=== PATIENT | male | born 1975 | race Caucasian/White ===

== ENCOUNTER 2017-04-14 19:41 | Observation (INO) | payer OTHER, BC ==
[2017-04-14] MEDS ORDERED: Sodium Chloride 0.9% 2.5 ML Syringe FLUSH PRN (19:56)
[2017-04-14] MEDS ORDERED: Aspirin 81 MG Tab.Chew PO ONE (19:56)
[2017-04-14] MEDS ORDERED: Sodium Chloride 0.9% 10 ML Syringe FLUSH PRN (19:56)
--- NOTE | 2017-04-14 20:01 | EDM.PDOC ---
ED HPI GENERAL MEDICAL PROBLEM - General Chief Complaint: Chest Pain Stated Complaint: CHEST PAIN Time Seen by Provider: 04/14/17 19:44 - History of Present Illness INITIAL COMMENTS - FREE TEXT/NARRATIVE: HISTORY AND PHYSICAL: History of present illness: The patient is a 42-year-old male with a history of PTSD who follows with a provider at the [facility] in [place] where he lives and presents with complaints of on and off left-sided chest pain has been ongoing for the last 1 week. The patient had a similar episode on November 01 of last year and presented to our ER and had an ER workup which was negative and he was advised to follow-up with his provider. He did that right his provider did not perform a stress test but the patient states he did have a cholesterol and lipid panel performed within the last 6 months. The patient states that he was managed more from a psychosocial point of view and it was felt by his provider that his chest discomfort was more related to his PTSD. The patient states that when he is working he tries to eat a good diet but he does like spicy foods but has no GI history, peptic ulcer disease or gallbladder problems. The patient does not smoke or do any drugs. The patient has no known family history but he states he does not know much about his father. The patient states that the chest pain is just to the left of his sternum and is sharp in character and does not radiate to his arm or jaw but does shoot through to his back. It waxes and wanes in intensity and he states he never wakes from sleep with this discomfort. He says that when he is at work or driving in the car that seems to trigger the discomfort. Patient has had no nausea vomiting or diaphoresis and no palpitations. He did have one episode of diarrhea today which was not black or bloody. Patient has a significant history of a recent left breast mass that was removed and determined to be benign. He has no discomfort at this area. Patient denies any shortness of breath or upper respiratory symptoms and has no leg pain or swelling. Patient does a lot of strenuous activity at work and does not specifically have chest pain with those activities. Patient currently rates his pain as a 7/10. Patient has not taken anything for this discomfort in the last 1 week. The patient states that the reason why he delayed coming in as he is unsure if this is more stress related and PTSD related or if it is cardiac and he thought that because it had been ongoing for a week he should be checked out Review of systems: As per history of present illness and below otherwise all systems reviewed and negative. Past medical history: As per history of present illness and as reviewed below otherwise noncontributory. Surgical history: As per history of present illness and as reviewed below otherwise noncontributory. Social history: No reported history of drug or alcohol abuse. Family history: As per history of present illness and as reviewed below otherwise noncontributory. Physical exam: Gen.: Well-developed well-nourished man who is nontoxic and vital signs were noted by me. HEENT: Atraumatic, normocephalic, pupils reactive, negative for conjunctival pallor or scleral icterus, mucous membranes moist, throat clear, neck supple, nontender, trachea midline. Lungs: Clear to auscultation, breath sounds equal bilaterally, chest nontender. No defects deformities crepitus. Heart: S1S2, regular, negative for clicks, rubs, or JVD. Abdomen: Soft, nondistended, nontender. Negative for masses or hepatosplenomegaly. Negative for costovertebral tenderness. Pelvis: Stable nontender. Genitourinary: Deferred. Rectal: Deferred. Extremities: Atraumatic, negative for cords or calf pain. Neurovascular unremarkable. No pedal edema or leg asymmetry Neuro: Awake, alert, oriented. Cranial nerves II through XII unremarkable. Cerebellum unremarkable. Motor and sensory unremarkable throughout. Exam nonfocal. Diagnostics: EKG chest x-ray CBC CMP troponin INR Therapeutics: Aspirin nitroglycerin IV O2 monitor Patient is chest pain-free after 2 sub-lingual nitroglycerin. Nitropaste will be applied I discussed all testing results with the patient and he is agreeable for observation admission. Case was also discussed with Dr. Connors at 2148 accepts the patient for admission Impression: Chest pain rule out ACS Definitive disposition and diagnosis as appropriate pending reevaluation and review of above. Anterior Chest Pain Score (Numeric/FACES): 0 - Related Data Allergies Allergy/AdvReac Type Severity Reaction Status Date / Time No Known Allergies Allergy Verified 04/14/17 19:44 Home Meds: Home Meds . [No Known Home Meds] 11/01/16 [History] Past Medical History HEENT History: Reports: Impaired Vision Other HEENT History: glasses Psychiatric History: Reports: Anxiety, PTSD - Infectious Disease History Infectious Disease History: Reports: Chicken Pox Social & Family History - Family History Family Medical History: Unobtainable - Tobacco Use Smoking Status *Q: Never Smoker Second Hand Smoke Exposure: No - Caffeine Use Caffeine Use: Reports: Soda - Recreational Drug Use Recreational Drug Use: No ED ROS GENERAL - Review of Systems Review Of Systems: ROS reveals no pertinent complaints other than HPI. ED EXAM, GENERAL - Physical Exam Exam: See Below (See dictation) Course - Vital Signs Last Recorded V/S: Last Vital Signs Temp 36.3 C 04/14/17 20:28 Pulse 51 L 04/14/17 20:28 Resp 17 04/14/17 20:28 BP 128/78 04/14/17 20:28 Pulse Ox 97 04/14/17 20:28 - Orders/Labs/Meds Orders: Active Orders 24 hr Category Date Time Status Patient Status [ADT] Stat ADT 04/14/17 21:45 Ordered Cardiac Monitoring [RC] . DIRECTED Care 04/14/17 19:56 Active EKG Documentation Completion [RC] STAT Care 04/14/17 19:56 Active Oxygen Therapy [RC] ASDIRECTED Care 04/14/17 19:56 Active Pulse Oximetry [RC] ASDIRECTED Care 04/14/17 19:56 Active Chest 1V Frontal [CR] Stat Exams 04/14/17 19:56 Taken Sodium Chloride 0.9% [Saline Flush] Med 04/14/17 19:56 Active 10 ml FLUSH ASDIRECTED PRN Sodium Chloride 0.9% [Saline Flush] Med 04/14/17 19:56 Active 2.5 ml FLUSH ASDIRECTED PRN Saline Lock Insert [OM.PC] Stat Oth 04/14/17 19:56 Ordered Medication Orders Sodium Chloride (Saline Flush) 10 ml FLUSH ASDIRECTED PRN PRN Reason: Keep Vein Open Last Admin: 04/14/17 20:05 Dose: 10 ml Sodium Chloride (Saline Flush) 2.5 ml FLUSH ASDIRECTED PRN PRN Reason: Keep Vein Open Last Admin: 04/14/17 20:04 Dose: 2.5 ml Labs: Laboratory Tests 04/14/17 04/14/17 04/14/17 Range/Units 19:49 19:49 19:49 WBC 10.55 (4.0-11.0) K/uL RBC 5.35 (4.50-5.90) M/uL Hgb 15.4 (13.0-17.0) g/dL Hct 42.4 (38.0-50.0) % MCV 79.3 L (80.0-98.0) fL MCH 28.8 (27.0-32.0) pg MCHC 36.3 (31.0-37.0) g/dL RDW Std Deviation 36.2 (28.0-62.0) fl RDW Coeff of Justine 13 (11.0-15.0) % Plt Count 346 (150-400) K/uL MPV 9.80 (7.40-12.00) fL Neut % (Auto) 61.3 (48.0-80.0) % Lymph % (Auto) 30.4 (16.0-40.0) % [place] % (Auto) 6.9 (0.0-15.0) % Eos % (Auto) 0.9 (0.0-7.0) % Baso % (Auto) 0.5 (0.0-1.5) % Neut # (Auto) 6.5 H (1.4-5.7) K/uL Lymph # (Auto) 3.2 H (0.6-2.4) K/uL [place] # (Auto) 0.7 (0.0-0.8) K/uL Eos # (Auto) 0.1 (0.0-0.7) K/uL Baso # (Auto) 0.1 (0.0-0.1) K/uL Nucleated RBC % 0.0 /100WBC Nucleated RBCs # 0 K/uL INR 1.01 (0.86-1.11) Sodium 138 (136-146) mmol/L Potassium 3.7 (3.5-5.1) mmol/L Chloride 106 (98-110) mmol/L Carbon Dioxide 21 (21-31) mmol/L BUN 14 (6.0-23.0) mg/dL Creatinine 0.9 (0.6-1.5) mg/dL Est Cr Clr Drug Dosing 117.36 mL/min Estimated GFR (MDRD) > 60.0 ml/min Glucose 85 (60-110) mg/dL Calcium 9.1 (8.8-10.8) mg/dL Total Bilirubin 0.5 (0.1-1.5) mg/dL AST 29 (5-40) IU/L ALT 41 (8-54) IU/L Alkaline Phosphatase 108 (40-150) Troponin I (0.0-0.29) NG/ML Total Protein 7.4 (6.0-8.0) g/dL Albumin 4.6 (3.5-5.0) g/dL Globulin 2.8 (2.0-3.5) g/dL Albumin/Globulin Ratio 1.6 (1.3-2.8) 04/14/17 Range/Units 19:49 WBC (4.0-11.0) K/uL RBC (4.50-5.90) M/uL Hgb (13.0-17.0) g/dL Hct (38.0-50.0) % MCV (80.0-98.0) fL MCH (27.0-32.0) pg MCHC (31.0-37.0) g/dL RDW Std Deviation (28.0-62.0) fl RDW Coeff of Justine (11.0-15.0) % Plt Count (150-400) K/uL MPV (7.40-12.00) fL Neut % (Auto) (48.0-80.0) % Lymph % (Auto) (16.0-40.0) % [place] % (Auto) (0.0-15.0) % Eos % (Auto) (0.0-7.0) % Baso % (Auto) (0.0-1.5) % Neut # (Auto) (1.4-5.7) K/uL Lymph # (Auto) (0.6-2.4) K/uL [place] # (Auto) (0.0-0.8) K/uL Eos # (Auto) (0.0-0.7) K/uL Baso # (Auto) (0.0-0.1) K/uL Nucleated RBC % /100WBC Nucleated RBCs # K/uL INR (0.86-1.11) Sodium (136-146) mmol/L Potassium (3.5-5.1) mmol/L Chloride (98-110) mmol/L Carbon Dioxide (21-31) mmol/L BUN (6.0-23.0) mg/dL Creatinine (0.6-1.5) mg/dL Est Cr Clr Drug Dosing mL/min Estimated GFR (MDRD) ml/min Glucose (60-110) mg/dL Calcium (8.8-10.8) mg/dL Total Bilirubin (0.1-1.5) mg/dL AST (5-40) IU/L ALT (8-54) IU/L Alkaline Phosphatase (40-150) Troponin I < 0.10 (0.0-0.29) NG/ML Total Protein (6.0-8.0) g/dL Albumin (3.5-5.0) g/dL Globulin (2.0-3.5) g/dL Albumin/Globulin Ratio (1.3-2.8) Meds: Medications Generic Name Dose Route Start Last Admin Trade Name Freq PRN Reason Stop Dose Admin Sodium Chloride 10 ml 04/14/17 19:56 04/14/17 20:05 Saline Flush FLUSH 10 ml ASDIRECTED PRN Administration Keep Vein Open Sodium Chloride 2.5 ml 04/14/17 19:56 04/14/17 20:04 Saline Flush FLUSH 2.5 ml ASDIRECTED PRN Administration Keep Vein Open Discontinued Medications Generic Name Dose Route Start Last Admin Trade Name Freq PRN Reason Stop Dose Admin Aspirin 324 mg 04/14/17 19:56 04/14/17 20:03 Aspirin PO 04/14/17 19:57 324 mg ONETIME ONE Administration Nitroglycerin 0.4 mg 04/14/17 20:00 04/14/17 20:17 Nitrostat SL 04/14/17 20:11 Not Given Q5M NAV Nitroglycerin 0.5 gm 04/14/17 21:45 Nitro-Bid 2% TOP 04/14/17 21:46 ONETIME ONE Departure - Departure Time of Disposition: 21:50 Disposition: Refer to Observation Condition: Good Clinical Impression: Acute coronary syndrome - Discharge Information Forms: ED Department Discharge - My Orders Last 24 Hours: My Active Orders 04/14/17 19:56 Cardiac Monitoring [RC] . DIRECTED EKG Documentation Completion [RC] STAT Oxygen Therapy [RC] ASDIRECTED Pulse Oximetry [RC] ASDIRECTED Chest 1V Frontal [CR] Stat Sodium Chloride 0.9% [Saline Flush] 10 ml FLUSH ASDIRECTED PRN Sodium Chloride 0.9% [Saline Flush] 2.5 ml FLUSH ASDIRECTED PRN Saline Lock Insert [OM.PC] Stat 04/14/17 21:45 Patient Status [ADT] Stat - Assessment/Plan Last 24 Hours: My Active Orders 04/14/17 19:56 Cardiac Monitoring [RC] . DIRECTED EKG Documentation Completion [RC] STAT Oxygen Therapy [RC] ASDIRECTED Pulse Oximetry [RC] ASDIRECTED Chest 1V Frontal [CR] Stat Sodium Chloride 0.9% [Saline Flush] 10 ml FLUSH ASDIRECTED PRN Sodium Chloride 0.9% [Saline Flush] 2.5 ml FLUSH ASDIRECTED PRN Saline Lock Insert [OM.PC] Stat 04/14/17 21:45 Patient Status [ADT] Stat
[2017-04-14] MEDS: Nitroglycerin 0.4 MG Tab.SL SL SCH ×3 (20:06→20:17)
[2017-04-14 20:29] LABS: CHLORIDE,CL 106 mmol/L (98-110); SODIUM,NA 138 mmol/L (136-146)
[2017-04-14] MEDS ORDERED: Nitroglycerin 2% Oint 1 GM UD Packet TOP ONE (21:45)
--- NOTE | 2017-04-15 09:24 | PCM.HP ---
H&P History of Present Illness - General Admit Problem/Dx: Admission Diagnosis/Problem Admission Diagnosis/Problem Acute coronary syndrome - History of Present Illness Initial Comments - Free Text/Narative: 42 yo male with pmh of PTSD who presents to the ED with chest pain. He reports having chest pain for years. His chest pain has been attributed to his PTSD in the past. He reports chest pain as a burning shocking pain in the center of his chest. He also has tingling of his extremities. The chest pain usually occurs with rest or while he is a car but not during exercise. He reports he can feel his heart beat during these episodes that can last for an hour or so. He reports anxiety and feeling like he might have to fight someone. These epsiodes have been increasing in frequency this past week and usually in the evening. Anterior Chest Pain Score (Numeric/FACES): 0 - Related Data Allergies/Adverse Reactions: Allergies Allergy/AdvReac Type Severity Reaction Status Date / Time No Known Allergies Allergy Verified 04/14/17 19:44 Home Medications: Home Meds Escitalopram Oxalate 20 mg PO BEDTIME 04/14/17 [History] Gabapentin [Neurontin] 200 mg PO BEDTIME 04/14/17 [History] Past Medical History HEENT History: Reports: Impaired Vision Other HEENT History: glasses Cardiovascular History: Reports: None Respiratory History: Reports: None Gastrointestinal History: Reports: None Genitourinary History: Reports: None Musculoskeletal History: Reports: None Neurological History: Reports: None Psychiatric History: Reports: Anxiety, PTSD Endocrine/Metabolic History: Reports: None Hematologic History: Reports: None Immunologic History: Reports: None Oncologic (Cancer) History: Reports: None Dermatologic History: Reports: Other (See Below) Other Dermatologic History: chest sx for a benign tumor - Infectious Disease History Infectious Disease History: Reports: Chicken Pox - Past Surgical History Head Surgeries/Procedures: Reports: None Cardiovascular Surgical History: Reports: None GI Surgical History: Reports: None Male Surgical History: Reports: None Endocrine Surgical History: Reports: None Neurological Surgical History: Reports: None Social & Family History - Family History Family Medical History: Unobtainable - Tobacco Use Smoking Status *Q: Never Smoker Used Tobacco, but Quit: Yes Month Tobacco Last Used: 17 Second Hand Smoke Exposure: No - Caffeine Use Caffeine Use: Reports: Soda - Alcohol Use Days Per Week of Alcohol Use: 3 Number of Drinks Per Day: 3 Total Drinks Per Week: 9 - Recreational Drug Use Recreational Drug Use: No H&P Review of Systems - Review of Systems: Review Of Systems: See Below General: Reports: No Symptoms HEENT: Reports: No Symptoms Pulmonary: Reports: No Symptoms Cardiovascular: Reports: No Symptoms Gastrointestinal: Reports: No Symptoms Genitourinary: Reports: No Symptoms Musculoskeletal: Reports: No Symptoms Skin: Reports: No Symptoms Psychiatric: Reports: No Symptoms Neurological: Reports: No Symptoms Hematologic/Lymphatic: Reports: No Symptoms Immunologic: Reports: No Symptoms Exam - Exam Exam: See Below - Vital Signs Vital Signs: Last Vital Signs Temp 36.4 C 04/15/17 04:00 Pulse 56 L 04/15/17 04:00 Resp 16 04/15/17 04:00 BP 133/63 04/15/17 04:00 Pulse Ox 95 04/15/17 04:00 Weight: 97.023 kg - Exam General: Alert, Oriented, 4 HEENT: Mucosa Moist & [place] Neck: No: JVD Lungs: Clear to Auscultation, Normal Respiratory Effort Cardiovascular: Regular Rate, Regular Rhythm Abdomen: Soft. No: Tenderness Extremities: Normal Inspection Skin: Warm, Dry, Intact Neurological: No: Focal Deficit - Patient Data Lab Results Last 24 hrs: Laboratory Results - last 24 hr 04/15/17 04/15/17 Range/Units 01:20 07:53 Troponin I < 0.10 < 0.10 (0.0-0.29) NG/ML Result Diagrams: 04/14/17 19:49 04/14/17 19:49 EKG INTERPRETATION Rhythm: Other (sinuse rhythm) Rate (Beats/Min): 53 ST-T: Normal *Q Meaningful Use (ADM) - VTE *Q VTE Criteria *Q: - Stroke *Q Stroke Criteria *Q: - AMI *Q AMI Criteria *Q: Problem List Initiated/Reviewed/Updated: Yes Orders Last 24hrs: Active Orders 24 hr Category Date Time Status Communication Order [RC] ROUTINE Care 04/14/17 23:14 Active Ready for Discharge [RC] PER UNIT ROUTINE Care 04/15/17 09:17 Ordered Telemetry Monitoring [Cardiac Monitoring] [RC] Q8H Care 04/14/17 23:12 Active Heart Healthy Diet [DIET] Diet 04/14/17 Dinner Active Medication Orders Sodium Chloride (Saline Flush) 10 ml FLUSH ASDIRECTED PRN PRN Reason: Keep Vein Open Last Admin: 04/14/17 20:05 Dose: 10 ml Sodium Chloride (Saline Flush) 2.5 ml FLUSH ASDIRECTED PRN PRN Reason: Keep Vein Open Last Admin: 04/14/17 20:04 Dose: 2.5 ml Assessment/Plan Comment:: 42 yo male who presented with chest pain. He was monitor overnight on telemetry and remains chest pain free. He ruled out for acute coronary syndrome with serial negative cardiac enzymes and EKG. Patient is to be discharged home. I offered to refer him to further cardiac stress testing here but patient would like to arrange that at home at the [facility].
--- NOTE | 2017-04-15 10:33 | CR ---
EXAM DATE: 04/14/17 PATIENT'S AGE: 42 Patient: ASTON KAUFFMAN Facility: [place], [place] Site . Site : [id number] Study: XRay Chest [id number] 8:31:44 PM Ordering Physician: Adolph Castillo Final Report: CHEST 1 VIEW AP INDICATION: Chest pain. IMPRESSION: Normal heart size and vascular pattern. Lungs are clear. No pneumothorax or pleural abnormality. ECG Monitor leads projected over the patient. Dictated by Jaswinder Powell MD @ Apr 14 2017 8:51PM (Electronic Signature) Report Signed by Proxy. SHIVAM
[2017-04-15 12:25] VITALS: BP 127/55
== END 2017-04-15 12:38 | disposition home or self-care (01) ==
LOC: MW.ED 19:41 → MW.MS 21:45
PROVIDERS: ADMIT Internal Medicine; ATTEND Internal Medicine
DX: R07.9 Chest pain, unspecified (principal); F41.9 Anxiety disorder, unspecified; F43.10 Post-traumatic stress disorder, unspecified; Z79.899 Other long term (current) drug therapy
CPT/HCPCS: 36415; 71010; 80053; 84484; 85025; 85610; 93005; 99285; A9270; G0378

== ENCOUNTER 2018-05-10 08:38 | Emergency (ER) | payer OTHER, BC ==
[2018-05-10] MEDS ORDERED: Aspirin 81 MG Tab.Chew PO ONE (09:03)
[2018-05-10] MEDS ORDERED: Sodium Chloride 0.9% 2.5 ML Syringe FLUSH PRN (09:03)
[2018-05-10] MEDS ORDERED: Sodium Chloride 0.9% 1,000 ML IV ONE (09:03)
[2018-05-10] MEDS ORDERED: Sodium Chloride 0.9% 10 ML Syringe FLUSH PRN (09:03)
--- NOTE | 2018-05-10 09:08 | EDM.PDOC ---
ED HPI GENERAL MEDICAL PROBLEM - General Chief Complaint: Chest Pain Stated Complaint: CHEST PAIN Time Seen by Provider: 05/10/18 08:50 - History of Present Illness INITIAL COMMENTS - FREE TEXT/NARRATIVE: HISTORY AND PHYSICAL: History of present illness: The patient is a 43-year-old male who presents with complaints of not feeling right and having some lightheadedness this morning while he was at work sitting at his desk. The patient states he ate a normal day yesterday and he has been monitoring his blood pressure and thought it was running on the high side, 140s over 80s. The patient has a history of an admission last year mid April for atypical chest pain and he attributed that chest pain to his PTSD. He had a rule out and proceeded to go back home to [place] and had a stress test but he was told was normal. The patient says that he tries to use herbal therapies to treat his symptomatology. 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 Today denies any chest pain shortness of breath headache or neck pain no upper respiratory symptoms fevers chills nausea vomiting or abdominal pain. He is eating and drinking normally. The patient says he has not passed out or blacked out and doesn't have any focal weakness but does has a generalized sensation of not feeling well that he is having difficulty describing. The patient tells me that his heart rate usually runs in the 80s. Review of systems: As per history of present illness and below otherwise all systems reviewed and negative. Past medical history: As per history of present illness and as reviewed below otherwise noncontributory. Surgical history: As per history of present illness and as reviewed below otherwise noncontributory. Social history: No reported history of drug or alcohol abuse. Family history: As per history of present illness and as reviewed below otherwise noncontributory. Physical exam: General: Well-developed well-nourished man who speaks clearly in the ED and vital signs are noted by me. HEENT: Atraumatic, normocephalic, pupils reactive, negative for conjunctival pallor or scleral icterus, mucous membranes moist, throat clear, neck supple, nontender, trachea midline. The patient does have a residual Aguayo's weakness that is very subtle with delay of the eyelid closure and downward turn of the mouth smile on the left side. Lungs: Clear to auscultation, breath sounds equal bilaterally, chest nontender. Heart: S1S2, regular rhythm and a bradycardic rate on my evaluation, negative for clicks, rubs, or JVD. Abdomen: Soft, nondistended, nontender. Negative for masses or hepatosplenomegaly. SLightly hypoactive bowel sounds Pelvis: Stable nontender. Genitourinary: Deferred. Rectal: Deferred. Extremities: Atraumatic, negative for cords or calf pain. Neurovascular unremarkable. No pedal edema and full range of motion of all extremities Neuro: Awake, alert, oriented. Cranial nerves II through XII unremarkable with the exception of the residual Aguayo's palsy and facial weakness as described above. Cerebellum unremarkable. Motor and sensory unremarkable throughout. Exam nonfocal. Diagnostics: EKG x 2 CBC CMP troponin TSH UA orthostatic vitals chest x-ray Therapeutics: IV O2 monitor IV fluids aspirin I have discussed all testing results with the patient and have repeated his EKG and his heart rate now is in the 50s. He continues to be asymptomatic without chest pain or shortness of breath no nausea vomiting or abdominal complaints. He is aware that he needs to follow-up at the [facility] which is where he is connecting but I will also give him resources to follow-up here if he chooses. I have briefly discussed the case with Dr. Pineda our veterinary virologist, without doing a formal consult, and he does not feel that he needs to follow this patient emergently in the clinic but is available if the patient chooses to see him. I will stressed to the patient need for close follow-up monitoring his blood pressure in a timed fashion/scheduled way if he chooses and to push hydration and follow-up. Impression: Episodic lightheadedness with bradycardia stable etiology unclear Definitive disposition and diagnosis as appropriate pending reevaluation and review of above. chest Pain Score (Numeric/FACES): 5 - Related Data Allergies Allergy/AdvReac Type Severity Reaction Status Date / Time No Known Allergies Allergy Verified 05/10/18 08:46 Home Meds: Home Meds . [No Known Home Meds] 05/10/18 [History] Past Medical History HEENT History: Reports: Impaired Vision Other HEENT History: glasses Cardiovascular History: Reports: None Respiratory History: Reports: None Gastrointestinal History: Reports: None Genitourinary History: Reports: None Musculoskeletal History: Reports: None Neurological History: Reports: None Psychiatric History: Reports: Anxiety, PTSD Endocrine/Metabolic History: Reports: None Hematologic History: Reports: None Immunologic History: Reports: None Oncologic (Cancer) History: Reports: None Dermatologic History: Reports: Other (See Below) Other Dermatologic History: chest sx for a benign tumor - Infectious Disease History Infectious Disease History: Reports: Chicken Pox - Past Surgical History Head Surgeries/Procedures: Reports: None Cardiovascular Surgical History: Reports: None GI Surgical History: Reports: None Male Surgical History: Reports: None Endocrine Surgical History: Reports: None Neurological Surgical History: Reports: None Social & Family History - Family History Family Medical History: Unobtainable - Caffeine Use Caffeine Use: Reports: Soda ED ROS GENERAL - Review of Systems Review Of Systems: ROS reveals no pertinent complaints other than HPI. ED EXAM, GENERAL - Physical Exam Exam: See Below (See dictation) Course - Vital Signs Last Recorded V/S: Last Vital Signs Temp 36.0 C 05/10/18 08:47 Pulse 64 05/10/18 09:59 Resp 16 05/10/18 09:59 BP 138/72 05/10/18 09:59 Pulse Ox 100 05/10/18 09:59 Orthostatic Blood Pressure [ 120/87 Standing] Orthostatic Blood Pressure [ 125/80 Sitting] Orthostatic Blood Pressure [ 119/78 Supine] - Orders/Labs/Meds Orders: Active Orders 24 hr Category Date Time Status Cardiac Monitoring [RC] . DIRECTED Care 05/10/18 09:02 Active EKG 12 Lead [EKG Documentation Completion] [RC] STAT Care 05/10/18 10:01 Active EKG Documentation Completion [RC] STAT Care 05/10/18 09:02 Active EKG Documentation Completion [RC] STAT Care 05/10/18 10:01 Active Orthostatic Vital Signs [RC] ASDIRECTED Care 05/10/18 09:03 Active Oxygen Therapy, ED [RC] ASDIRECTED Care 05/10/18 09:02 Active Pulse Oximetry [RC] ASDIRECTED Care 05/10/18 09:02 Active UA W/MICROSCOPIC [URIN] Stat Lab 05/10/18 09:03 Ordered Sodium Chloride 0.9% [Saline Flush] Med 05/10/18 09:03 Active 10 ml FLUSH ASDIRECTED PRN Sodium Chloride 0.9% [Saline Flush] Med 05/10/18 09:03 Active 2.5 ml FLUSH ASDIRECTED PRN Saline Lock Insert [OM.PC] Stat Oth 05/10/18 09:02 Ordered Medication Orders Sodium Chloride (Saline Flush) 10 ml FLUSH ASDIRECTED PRN PRN Reason: Keep Vein Open Sodium Chloride (Saline Flush) 2.5 ml FLUSH ASDIRECTED PRN PRN Reason: Keep Vein Open Labs: Laboratory Tests 05/10/18 05/10/18 Range/Units 08:50 08:50 WBC 6.40 (4.0-11.0) K/uL RBC 5.68 (4.50-5.90) M/uL Hgb 16.2 (13.0-17.0) g/dL Hct 44.8 (38.0-50.0) % MCV 78.9 L (80.0-98.0) fL MCH 28.5 (27.0-32.0) pg MCHC 36.2 (31.0-37.0) g/dL RDW Std Deviation 36.1 (28.0-62.0) fl RDW Coeff of Justine 13 (11.0-15.0) % Plt Count 310 (150-400) K/uL MPV 9.80 (7.40-12.00) fL Neut % (Auto) 50.7 (48.0-80.0) % Lymph % (Auto) 37.3 (16.0-40.0) % [place] % (Auto) 9.1 (0.0-15.0) % Eos % (Auto) 2.3 (0.0-7.0) % Baso % (Auto) 0.6 (0.0-1.5) % Neut # (Auto) 3.2 (1.4-5.7) K/uL Lymph # (Auto) 2.4 (0.6-2.4) K/uL [place] # (Auto) 0.6 (0.0-0.8) K/uL Eos # (Auto) 0.2 (0.0-0.7) K/uL Baso # (Auto) 0.0 (0.0-0.1) K/uL Nucleated RBC % 0.0 /100WBC Nucleated RBCs # 0 K/uL Sodium 138 (136-148) mmol/L Potassium 3.6 (3.5-5.1) mmol/L Chloride 103 (98-107) mmol/L Carbon Dioxide 26.1 (21.0-32.0) mmol/L BUN 14 (7.0-18.0) mg/dL Creatinine 1.1 (0.8-1.3) mg/dL Est Cr Clr Drug Dosing 95.04 mL/min Estimated GFR (MDRD) > 60.0 ml/min Glucose 92 (74-106) mg/dL Calcium 8.6 (8.5-10.1) mg/dL Total Bilirubin 0.4 (0.2-1.0) mg/dL AST 20 (15-37) IU/L ALT 39 (14-63) IU/L Alkaline Phosphatase 107 (46-116) U/L Troponin I < 0.050 (0.000-0.056) ng/mL Total Protein 7.6 (6.4-8.2) g/dL Albumin 4.4 (3.4-5.0) g/dL Globulin 3.2 (2.0-3.5) g/dL Albumin/Globulin Ratio 1.4 (1.3-2.8) TSH 3rd Generation 3.69 (0.36-3.74) uIU/mL Meds: Medications Generic Name Dose Route Start Last Admin Trade Name Aury PRN Reason Stop Dose Admin Sodium Chloride 10 ml 05/10/18 09:03 Saline Flush FLUSH ASDIRECTED PRN Keep Vein Open Sodium Chloride 2.5 ml 05/10/18 09:03 Saline Flush FLUSH ASDIRECTED PRN Keep Vein Open Discontinued Medications Generic Name Dose Route Start Last Admin Trade Name Aury PRN Reason Stop Dose Admin Aspirin 324 mg 05/10/18 09:03 05/10/18 09:17 Aspirin PO 05/10/18 09:04 324 mg ONETIME ONE Administration Sodium Chloride 1,000 mls @ 999 mls/hr 05/10/18 09:03 05/10/18 09:17 Normal Saline IV 05/10/18 10:03 999 mls/hr STAT ONE Administration Departure - Departure Time of Disposition: 10:19 Disposition: Home, Self-Care 01 Condition: Good Clinical Impression: Lightheadedness, Bradycardia - Discharge Information Forms: ED Department Discharge Additional Instructions: The following information is given to patients seen in the emergency department who are being discharged to home. This information is to outline your options for follow-up care. We provide all patients seen in our emergency department with a follow-up referral. The need for follow-up, as well as the timing and circumstances, are variable depending upon the specifics of your emergency department visit. If you don't have a primary care physician on staff, we will provide you with a referral. We always advise you to contact your personal physician following an emergency department visit to inform them of the circumstance of the visit and for follow-up with them and/or the need for any referrals to a consulting specialist. The emergency department will also refer you to a specialist when appropriate. This referral assures that you have the opportunity for followup care with a specialist. All of these measure are taken in an effort to provide you with optimal care, which includes your followup. Under all circumstances we always encourage you to contact your private physician who remains a resource for coordinating your care. When calling for followup care, please make the office aware that this follow-up is from your recent emergency room visit. If for any reason you are refused follow-up, please contact the [facility] emergency department at and ask to speak to the emergency department charge nurse. [facility] Primary care- Internal Medicine and Family [address] [address] Please call and schedule a follow[facility] appointment [facility] or with our clinic providers. Push hydration and rest. Return to ER as needed and as discussed. If you choose to monitor your blood pressure and pulse please do it at scheduled times twice a day as we discussed. Record these numbers to discuss with your new provider. - My Orders Last 24 Hours: My Active Orders 05/10/18 09:02 Cardiac Monitoring [RC] . DIRECTED EKG Documentation Completion [RC] STAT Oxygen Therapy, ED [RC] ASDIRECTED Pulse Oximetry [RC] ASDIRECTED Saline Lock Insert [OM.PC] Stat 05/10/18 09:03 Orthostatic Vital Signs [RC] ASDIRECTED UA W/MICROSCOPIC [URIN] Stat Sodium Chloride 0.9% [Saline Flush] 10 ml FLUSH ASDIRECTED PRN Sodium Chloride 0.9% [Saline Flush] 2.5 ml FLUSH ASDIRECTED PRN 05/10/18 10:01 EKG 12 Lead [EKG Documentation Completion] [RC] STAT EKG Documentation Completion [RC] STAT - Assessment/Plan Last 24 Hours: My Active Orders 05/10/18 09:02 Cardiac Monitoring [RC] . DIRECTED EKG Documentation Completion [RC] STAT Oxygen Therapy, ED [RC] ASDIRECTED Pulse Oximetry [RC] ASDIRECTED Saline Lock Insert [OM.PC] Stat 05/10/18 09:03 Orthostatic Vital Signs [RC] ASDIRECTED UA W/MICROSCOPIC [URIN] Stat Sodium Chloride 0.9% [Saline Flush] 10 ml FLUSH ASDIRECTED PRN Sodium Chloride 0.9% [Saline Flush] 2.5 ml FLUSH ASDIRECTED PRN 05/10/18 10:01 EKG 12 Lead [EKG Documentation Completion] [RC] STAT EKG Documentation Completion [RC] STAT
--- NOTE | 2018-05-10 09:47 | CR ---
EXAMINATION: Portable chest radiograph. HISTORY: Shortness of breath. FINDINGS: The trachea is midline. The cardiomediastinal silhouette is within normal limits. No pulmonary infilt rates, effusions or pneumothorax. Osseous structures appear unremarkable. IMPRESSION: No acute cardiopulmonary process.
[2018-05-10 09:51] LABS: CHLORIDE,CL 103 mmol/L (98-107); SODIUM,NA 138 mmol/L (136-148)
[2018-05-10 10:53] VITALS: BP 130/76
== END 2018-05-10 10:45 | disposition home or self-care (01) ==
LOC: MW.ED 08:38
DX: R42 Dizziness and giddiness (principal); R00.1 Bradycardia, unspecified
CPT/HCPCS: 71045; 80053; 84443; 84484; 85025; 93005; 96360; 99285; A9270; J7040

== ENCOUNTER 2019-05-04 02:48 | Emergency (ER) | payer BC, OTHER ==
[2019-05-04] MEDS ORDERED: Sodium Chloride 0.9% 1,000 ML IV ONE (02:51)
[2019-05-04] MEDS ORDERED: Aspirin 81 MG Tab.Chew PO ONE (02:51)
--- NOTE | 2019-05-04 03:07 | EDM.PDOC ---
ED HPI GENERAL MEDICAL PROBLEM - General Chief Complaint: Chest Pain Stated Complaint: CHEST PAIN Time Seen by Provider: 05/04/19 03:06 Source of Information: Reports: Patient - History of Present Illness INITIAL COMMENTS - FREE TEXT/NARRATIVE: HISTORY AND PHYSICAL: History of present illness: [Patient presents with chest pain that has now resolved, he states that he had a bad dream and he awoke and felt chest pain that he rates 7 out of 10 however resolved shortly after arrival 0 out of 10 pain now not associated with radiation arm neck or jaw no shortness of breath or diaphoresis No fever nausea vomiting chills sweats no shortness breath headache dizziness palpitation no bowel or urine symptoms ] Patient has history of service PTSD and anxiety Review of systems: As per history of present illness and below otherwise all systems reviewed and negative. Past medical history: As per history of present illness and as reviewed below otherwise noncontributory. Surgical history: As per history of present illness and as reviewed below otherwise noncontributory. Social history: No reported history of drug or alcohol abuse. Family history: As per history of present illness and as reviewed below otherwise noncontributory. Physical exam: HEENT: Atraumatic, normocephalic, pupils reactive, negative for conjunctival pallor or scleral icterus, mucous membranes moist, throat clear, neck supple, nontender, trachea midline. Lungs: Clear to auscultation, breath sounds equal bilaterally, chest nontender. Heart: S1S2, regular, negative for clicks, rubs, or JVD. Abdomen: Soft, nondistended, nontender. Negative for masses or hepatosplenomegaly. Negative for costovertebral tenderness. Pelvis: Stable nontender. Genitourinary: Deferred. Rectal: Deferred. Extremities: Atraumatic, negative for cords or calf pain. Neurovascular unremarkable. Neuro: Awake, alert, oriented. Cranial nerves II through XII unremarkable. Cerebellum unremarkable. Motor and sensory unremarkable throughout. Exam nonfocal. Diagnostics: [EBC CMP troponin EKG Chest 1 view ] Therapeutics: [Normal saline Aspirin 324 mg chewable Offered admission and declines Impression: [ chest pain -resolved anxiety about health Chronic history of baseline] Definitive disposition and diagnosis as appropriate pending reevaluation and review of above. Middle Chest Pain Score (Numeric/FACES): 7 - Related Data Allergies Allergy/AdvReac Type Severity Reaction Status Date / Time No Known Allergies Allergy Verified 05/10/18 08:46 Home Meds: Home Meds . [No Known Home Meds] 05/10/18 [History] Past Medical History HEENT History: Reports: Impaired Vision Other HEENT History: glasses Cardiovascular History: Reports: None Respiratory History: Reports: None Gastrointestinal History: Reports: None Genitourinary History: Reports: None Musculoskeletal History: Reports: None Neurological History: Reports: None Psychiatric History: Reports: Anxiety, PTSD Endocrine/Metabolic History: Reports: None Hematologic History: Reports: None Immunologic History: Reports: None Oncologic (Cancer) History: Reports: None Dermatologic History: Reports: Other (See Below) Other Dermatologic History: chest sx for a benign tumor - Infectious Disease History Infectious Disease History: Reports: Chicken Pox - Past Surgical History Head Surgeries/Procedures: Reports: None Cardiovascular Surgical History: Reports: None GI Surgical History: Reports: None Male Surgical History: Reports: None Endocrine Surgical History: Reports: None Neurological Surgical History: Reports: None Social & Family History - Family History Family Medical History: Unobtainable - Caffeine Use Caffeine Use: Reports: Soda ED ROS GENERAL - Review of Systems Review Of Systems: See Below ED EXAM, GENERAL - Physical Exam Exam: See Below Course - Vital Signs Last Recorded V/S: Last Vital Signs Temp 96.9 F 05/04/19 03:00 Pulse 53 L 05/04/19 03:00 Resp 18 05/04/19 03:00 BP 148/96 H 05/04/19 03:00 Pulse Ox 98 05/04/19 03:00 - Orders/Labs/Meds Orders: Active Orders 24 hr Category Date Time Status EKG Documentation Completion [RC] STAT Care 05/04/19 02:51 Active Sodium Chloride 0.9% [Normal Saline] 1,000 ml Med 05/04/19 02:51 Active IV STAT Medication Orders Sodium Chloride (Normal Saline) 1,000 mls @ 999 mls/hr IV STAT ONE Stop: 05/04/19 03:51 Last Admin: 05/04/19 03:03 Dose: 999 mls/hr Labs: Laboratory Tests 05/04/19 05/04/19 05/04/19 Range/Units 02:55 02:55 03:16 WBC 7.32 (4.0-11.0) K/uL RBC 5.47 (4.50-5.90) M/uL Hgb 15.7 (13.0-17.0) g/dL Hct 44.2 (38.0-50.0) % MCV 80.8 (80.0-98.0) fL MCH 28.7 (27.0-32.0) pg MCHC 35.5 (31.0-37.0) g/dL RDW Std Deviation 38.1 (28.0-62.0) fl RDW Coeff of Justine 13 (11.0-15.0) % Plt Count 317 (150-400) K/uL MPV 9.80 (7.40-12.00) fL Neut % (Auto) 46.8 L (48.0-80.0) % Lymph % (Auto) 39.9 (16.0-40.0) % [place] % (Auto) 9.7 (0.0-15.0) % Eos % (Auto) 3.1 (0.0-7.0) % Baso % (Auto) 0.5 (0.0-1.5) % Neut # (Auto) 3.4 (1.4-5.7) K/uL Lymph # (Auto) 2.9 H (0.6-2.4) K/uL [place] # (Auto) 0.7 (0.0-0.8) K/uL Eos # (Auto) 0.2 (0.0-0.7) K/uL Baso # (Auto) 0.0 (0.0-0.1) K/uL Nucleated RBC % 0.0 /100WBC Nucleated RBCs # 0 K/uL Sodium 141 (136-148) mmol/L Potassium 3.7 (3.5-5.1) mmol/L Chloride 103 (98-107) mmol/L Carbon Dioxide 28.9 (21.0-32.0) mmol/L BUN 11 (7.0-18.0) mg/dL Creatinine 0.9 (0.8-1.3) mg/dL Est Cr Clr Drug Dosing TNP Estimated GFR (MDRD) > 60.0 ml/min Glucose 93 (74-106) mg/dL Calcium 8.7 (8.5-10.1) mg/dL Total Bilirubin 0.5 (0.2-1.0) mg/dL AST 28 (15-37) IU/L ALT 56 (14-63) IU/L Alkaline Phosphatase 112 (46-116) U/L Troponin I < 0.050 (0.000-0.056) ng/mL Total Protein 7.5 (6.4-8.2) g/dL Albumin 4.1 (3.4-5.0) g/dL Globulin 3.4 (2.6-4.0) g/dL Albumin/Globulin Ratio 1.2 (0.9-1.6) Urine Color YELLOW Urine Appearance CLEAR Urine pH 5.5 (5.0-8.0) Ur Specific [place] <= 1.005 (1.001-1.035) Urine Protein NEGATIVE (NEGATIVE) mg/dL Urine Glucose (UA) NEGATIVE (NEGATIVE) mg/dL Urine Ketones NEGATIVE (NEGATIVE) mg/dL Urine Occult Blood NEGATIVE (NEGATIVE) Urine Nitrite NEGATIVE (NEGATIVE) Urine Bilirubin NEGATIVE (NEGATIVE) Urine Urobilinogen 0.2 (<2.0) EU/dL Ur Leukocyte Esterase NEGATIVE (NEGATIVE) Meds: Medications Generic Name Dose Route Start Last Admin Trade Name Freq PRN Reason Stop Dose Admin Sodium Chloride 1,000 mls @ 999 mls/hr 05/04/19 02:51 05/04/19 03:03 Normal Saline IV 05/04/19 03:51 999 mls/hr STAT ONE Administration Discontinued Medications Generic Name Dose Route Start Last Admin Trade Name Freq PRN Reason Stop Dose Admin Aspirin 324 mg 05/04/19 02:51 05/04/19 03:03 Aspirin PO 05/04/19 02:52 324 mg ONETIME ONE Administration Departure - Departure Time of Disposition: 03:46 Disposition: Home, Self-Care 01 Condition: Good Clinical Impression: Chest pain - Discharge Information Referrals: PCP,None [Primary Care Provider] - Forms: ED Department Discharge Additional Instructions: The following information is given to patients seen in the emergency department who are being discharged to home. This information is to outline your options for follow-up care. We provide all patients seen in our emergency department with a follow-up referral. The need for follow-up, as well as the timing and circumstances, are variable depending upon the specifics of your emergency department visit. If you don't have a primary care physician on staff, we will provide you with a referral. We always advise you to contact your personal physician following an emergency department visit to inform them of the circumstance of the visit and for follow-up with them and/or the need for any referrals to a consulting specialist. The emergency department will also refer you to a specialist when appropriate. This referral assures that you have the opportunity for follow-up care with a specialist. All of these measure are taken in an effort to provide you with optimal care, which includes your follow-up. Under all circumstances we always encourage you to contact your private physician who remains a resource for coordinating your care. When calling for follow-up care, please make the office aware that this follow-up is from your recent emergency room visit. If for any reason you are refused follow-up, please contact the [facility] emergency department at and asked to speak to the emergency department charge nurse. - My Orders Last 24 Hours: My Active Orders 05/04/19 02:51 EKG Documentation Completion [RC] STAT Sodium Chloride 0.9% [Normal Saline] 1,000 ml IV STAT - Assessment/Plan Last 24 Hours: My Active Orders 05/04/19 02:51 EKG Documentation Completion [RC] STAT Sodium Chloride 0.9% [Normal Saline] 1,000 ml IV STAT
--- NOTE | 2019-05-04 03:20 | CR ---
Indication: Two day history of chest pain Technique: Chest 1 view Comparison: May 10, 2018 Findings/Impression: Cardiovascular and mediastinum: Heart size and vasculature are normal in caliber and appearance. Mediastinum is within normal limits. Lungs and pleural space: Lungs are clear. No sign of infiltrate or mass. No sign of pleural effusion. No pneumothorax. Bones and soft tissues: No significant findings. Dictated by Mindy Blum MD @ May 04 2019 3:18AM Signed by Dr. Mindy Blum @ May 04 2019 3:18AM
[2019-05-04 03:25] LABS: CHLORIDE,CL 103 mmol/L (98-107); SODIUM,NA 141 mmol/L (136-148)
[2019-05-04 03:33] VITALS: BP 148/96
== END 2019-05-04 03:55 | disposition home or self-care (01) ==
LOC: MW.ED 02:48
DX: R07.9 Chest pain, unspecified (principal); F41.9 Anxiety disorder, unspecified
CPT/HCPCS: 36415; 71045; 80053; 81003; 84484; 85025; 93005; 96360; 99285; A9270; J7040